=== PATIENT | female | born 1990 | race American Indian/Alaskan Native ===

== ENCOUNTER 2017-10-02 23:30 | Emergency (ER) | payer SELFPAY ==
[2017-10-02 23:45] VITALS: O2SAT 99
[2017-10-03] MEDS ORDERED: Sodium Chloride 0.9% 1,000 ML IV ONE (00:11)
--- NOTE | 2017-10-03 00:17 | C.PDOC ---
History Of Present Illness 27 year old female presents to the ED for evaluation of a cramping, right-sided abdominal discomfort which began today. Patient reports history of constipation. She denies fever, chills, nausea, vomiting. Time Seen by Provider: 10/03/17 00:02 Chief Complaint (Nursing): Abdominal Pain History Per: Patient History/Exam Limitations: no limitations Onset/Duration Of Symptoms: Hrs Current Symptoms Are (Timing): Still Present Location Of Pain/Discomfort: Other (right-sided ) Quality Of Discomfort: Cramping Associated Symptoms: denies: Fever, Chills, Nausea, Vomiting Additional History Per: Patient Abnormal Vaginal Bleeding: No Past Medical History Reviewed: Historical Data, Nursing Documentation, Vital Signs Vital Signs: Last Vital Signs Temp 98.3 F 10/03/17 02:17 Pulse 98 H 10/03/17 02:17 Resp 17 10/03/17 02:17 BP 125/68 10/03/17 02:17 Pulse Ox 99 10/03/17 04:37 - Medical History PMH: No Chronic Diseases Surgical History: No Surg Hx Family History: States: Unknown Family Hx - Social History Hx Tobacco Use: No Hx Alcohol Use: No Hx Substance Use: No - Immunization History Hx Tetanus Toxoid Vaccination: No Hx Influenza Vaccination: No Hx Pneumococcal Vaccination: No Review Of Systems Constitutional: Negative for: Fever, Chills Gastrointestinal: Positive for: Abdominal Pain (right-sided ). Negative for: Vomiting, Diarrhea Physical Exam - Physical Exam Appears: Non-toxic, No Acute Distress Skin: Normal Color, Warm, Dry Head: Atraumatic, Normacephalic Eye(s): bilateral: Normal Inspection Oral Mucosa: Moist Neck: Supple Chest: Symmetrical, No Deformity, No Tenderness Cardiovascular: Rhythm Regular, No Murmur Respiratory: Normal Breath Sounds, No Rales, No Rhonchi, No Wheezing Gastrointestinal/Abdominal: Soft, No Tenderness, No Guarding, No Rebound, Other (obese, dull to percussion on right side. negative Jorgensen's sign and McBurney's point tenderness ) Extremity: Normal ROM, Capillary Refill (less than 2 seconds) Neurological/Psych: Oriented x3, Normal Speech, Normal Cognition ED Course And Treatment - Laboratory Results Result Diagrams: 10/03/17 00:48 10/03/17 00:48 Lab Interpretation: Normal (ua neg.) Urine POC: Negative O2 Sat by Pulse Oximetry: 99 (on RA ) Pulse Ox Interpretation: Normal - Radiology CXR: Interpreted by Me CXR Interpretation: Yes: No Acute Disease - Other Rad abd x 2 X-Ray: Interpreted by Me (+FOS) Progress Note: Bloodwork, urinalysis, obstructive series abd ordered and reviewed. IV Fluids administered. Reevaluation Time: : Reassessment Condition: Improved Disposition Doctor Will See Patient In The: Office Counseled Patient/Family Regarding: Studies Performed, Diagnosis - Disposition Referrals: [facility] [Outside] [facility] [Outside] [facility] [Outside] Disposition: HOME/ ROUTINE Disposition Time: Condition: GOOD Additional Instructions: drink a bottle of Mag Citrate (laxative) now and re-evaluate your abdominal discomfort after using the bathroom 2-3 times diet and exercise changes power walk 45 mins/day x 5 days/week drink more water Follow-up in our outpatient Clinic as needed. Instructions: Constipation, Adult (DC) Forms: [facility] (Belarusian), Work Excuse - Clinical Impression Clinical Impression: Abdominal pain, Colicky right lower quadrant pain - Scribe Statement The provider has reviewed the documentation as recorded by the Scribe (Shauna Carvajal) Provider Attestation: All medical record entries made by the Scribe were at my direction and personally dictated by me. I have reviewed the chart and agree that the record accurately reflects my personal performance of the history, physical exam, medical decision making, and the department course for this patient. I have also personally directed, reviewed, and agree with the discharge instructions and disposition.
[2017-10-03 00:35] LABS: HCG,QUALITATIVE URINE NEGATIVE (NEGATIVE)
[2017-10-03 00:40] LABS: SQUAMOUS EPITHIAL 35 /hpf (0-5); URINE BACTERIA MOD (<OCC); URINE BILIRUBIN NEGATIVE (NEGATIVE); URINE BLOOD NEGATIVE (NEGATIVE); URINE CLARITY Hazy (Clear); URINE COLOR Yellow (YELLOW); URINE GLUCOSE (UA) NORMAL (Normal); URINE LEUKOCYTE ESTERASE TRACE Leu/uL (Negative); URINE PROTEIN NEGATIVE (NEGATIVE)
[2017-10-03 00:52] LABS: BASO % 0.8 % (0.0-2.0); EOS # 0.1 K/uL (0.0-0.7); EOS % 1.8 % (0.0-4.0); HEMOGLOBIN 13.6 g/dL (11.0-16.0); MEAN CELL VOLUME 86.7 fL (81.0-99.0); MEAN CORPUSCULAR HEMOGLOBIN 29.4 pg (27.0-31.0); MEAN CORPUSCULAR HGB CONC 33.9 g/dL (33.0-37.0); MEAN PLATELET VOLUME 9.1 fL (7.2-11.7); MONO # 0.4 K/uL (0.0-0.8); MONO % 6.7 % (0.0-10.0); NEUT # 2.3 K/uL (1.8-7.0); NEUT % 38.7 % (50.0-75.0); NRBC % 0.1 % (0.0-2.0); RBC 4.61 Mil/uL (3.80-5.20); RED CELL DISTRIBUTION WIDTH 13.5 % (11.5-14.5); WHITE BLOOD COUNT 5.8 K/uL (4.8-10.8)
[2017-10-03 01:04] LABS: ALB/GLOB RATIO 1.2 (1.0-2.1); ALBUMIN 3.9 g/dL (3.5-5.0); ALT/SGPT 8 U/L (9-52); AST/SGOT 21 U/L (14-36); BLOOD UREA NITROGEN 14 mg/dL (7-17); CALCIUM 8.9 mg/dl (8.6-10.4); GFR AFRICAN-AMERICAN > 60; GFR NON-AFRICAN AMERICAN > 60; LIPASE 86 U/L (23-300)
[2017-10-03 02:18] VITALS: BP 125/68; PULSE 98; RESP 17; TEMP 98.3
--- NOTE | 2017-10-03 14:13 | RAD ---
PROCEDURE: Radiographs of the chest and abdomen (obstructive series) HISTORY: abd pain COMPARISON: No prior. TECHNIQUE: AP radiograph of the chest, with upright and supine radiographs of the abdomen. FINDINGS: CHEST: Lungs: Clear. Cardiovascular: Normal size heart. No pulmonary vascular congestion. Pleura: No pleural fluid. No pneumothorax. Other findings: None. ABDOMEN AND PELVIS: Bowel: Mild constipation, otherwise unremarkable bowel gas pattern. No evidence of mechanical obstruction. Free air: None. Bones: Scoliosis in the thoracic and lumbar spine is noted Other findings: None. IMPRESSION: Mild constipation is noted. Otherwise unremarkable radiographs of chest and abdomen. No evidence of mechanical bowel obstruction. S shape scoliosis seen in the thoracic and lumbar spine.
== END 2017-10-03 02:18 | disposition home or self-care (01) ==
LOC: C.ER 23:30
DX: R10.84 Generalized abdominal pain (principal)
CPT/HCPCS: 74022; 80053; 81001; 83690; 84703; 85025; 96360; 99284; J7030

== ENCOUNTER 2018-01-09 15:05 | Emergency (ER) | payer OTHER ==
[2018-01-09 15:29] VITALS: BMI 34.3
[2018-01-09 15:32] VITALS: TEMP 98; O2SAT 98
[2018-01-09] MEDS ORDERED: Sodium Chloride 0.9% 1,000 ML IV STA (15:59)
--- NOTE | 2018-01-09 16:01 | C.PDOC ---
History Of Present Illness 27 year old female with history of pituitary tumor that was diagnosed in 2016 presents to ED for evaluation of headache for the past three days. Patient reports she lost her insurance and has not been treated for the last six months. Patient denies fever, chills, nausea, vomiting, numbness, weakness. Time Seen by Provider: 01/09/18 15:40 Chief Complaint (Nursing): Headache History Per: Patient History/Exam Limitations: no limitations Onset/Duration Of Symptoms: Days Past Medical History Reviewed: Historical Data, Nursing Documentation, Vital Signs Vital Signs: Last Vital Signs Temp 98 F 01/09/18 15:29 Pulse 78 01/09/18 18:21 Resp 16 01/09/18 18:21 BP 116/72 01/09/18 18:21 Pulse Ox 98 01/10/18 12:52 Surgical History: No Surg Hx Family History: States: No Known Family Hx - Social History Hx Tobacco Use: No Hx Alcohol Use: No Hx Substance Use: No - Immunization History Hx Tetanus Toxoid Vaccination: No Hx Influenza Vaccination: No Hx Pneumococcal Vaccination: No Review Of Systems Except As Marked, All Systems Reviewed And Found Negative. Constitutional: Negative for: Fever, Chills Gastrointestinal: Negative for: Nausea, Vomiting Neurological: Positive for: Headache. Negative for: Weakness, Numbness Physical Exam - Physical Exam Appears: Non-toxic, No Acute Distress Skin: Warm, Dry Head: Atraumatic, Normacephalic Eye(s): bilateral: Normal Inspection, EOMI Oral Mucosa: Moist Neck: Normal ROM, Supple Cardiovascular: Rhythm Regular Respiratory: Normal Breath Sounds, No Rales, No Rhonchi, No Wheezing Extremity: Normal ROM Neurological/Psych: Oriented x3, Normal Speech, Normal Cognition, No Other (no focal deficits) ED Course And Treatment - Laboratory Results Result Diagrams: 01/09/18 16:34 01/09/18 16:34 O2 Sat by Pulse Oximetry: 98 (RA) Pulse Ox Interpretation: Normal - Other Rad CT Head X-Ray: Interpreted by Me, Viewed By Me Interpretation: Date of service: 01/09/2018. PROCEDURE: CT HEAD WITHOUT CONTRAST. HISTORY: headache, h/o pituitary tumor. COMPARISON: None available. TECHNIQUE: Axial computed tomography images were obtained through the head/brain without intravenous contrast. Radiation dose: Total exam DLP = 1049.8 mGy-cm. This CT exam was performed using one or more of the following dose reduction techniques: Automated exposure control, adjustment of the mA and/ or kV according to patient size, and/or use of iterative reconstruction technique. FINDINGS: HEMORRHAGE: No intracranial hemorrhage. BRAIN: No mass effect or edema. No atrophy or chronic microvascular ischemic changes. VENTRICLES: Unremarkable. No hydrocephalus. CALVARIUM: Unremarkable. PARANASAL SINUSES: Unremarkable as visualized. No significant inflammatory changes. MASTOID AIR CELLS: Unremarkable as visualized. No inflammatory changes. OTHER FINDINGS: Prominent pituitary tissue extending to the right. IMPRESSION: No acute intracranial pathology. Progress Note: Cat scan, labs ordered and reviewed. Pt was given macrobid, reglan, and toradol. On reassesment, patient feels better, no longer c/o headache, tolerating PO well. Patient is stable for discharge. Case discussed with attending, Dr. Castro, who agrees upon plan and discharge. Patient is being discharged home with instructions to follow up with PMD in 1-2 days. Disposition - Disposition Referrals: [facility] [Outside] Disposition: HOME/ ROUTINE Disposition Time: 18:02 Condition: STABLE Additional Instructions: Follow up in Clinic within 1-2 days. Return to ED if feel worse. 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 - Scribe Statement The provider has reviewed the documentation as recorded by the Scribe Yonatan Winslowed All medical record entries made by the Scribe were at my direction and personally dictated by me. I have reviewed the chart and agree that the record accurately reflects my personal performance of the history, physical exam, medical decision making, and the department course for this patient. I have also personally directed, reviewed, and agree with the discharge instructions and disposition.
--- NOTE | 2018-01-09 16:34 | CT ---
Date of service: 01/09/2018 PROCEDURE: CT HEAD WITHOUT CONTRAST. HISTORY: headache, h/o pituitary tumor COMPARISON: None available. TECHNIQUE: Axial computed tomography images were obtained through the head/brain without intravenous contrast. Radiation dose: Total exam DLP = 1049.8 mGy-cm. This CT exam was performed using one or more of the following dose reduction techniques: Automated exposure control, adjustment of the mA and/or kV according to patient size, and/or use of iterative reconstruction technique. FINDINGS: HEMORRHAGE: No intracranial hemorrhage. BRAIN: No mass effect or edema. No atrophy or chronic microvascular ischemic changes. VENTRICLES: Unremarkable. No hydrocephalus. CALVARIUM: Unremarkable. PARANASAL SINUSES: Unremarkable as visualized. No significant inflammatory changes. MASTOID AIR CELLS: Unremarkable as visualized. No inflammatory changes. OTHER FINDINGS: Prominent pituitary tissue extending to the right. IMPRESSION: No acute intracranial pathology.
[2018-01-09 16:38] LABS: BASO % 0.6 % (0.0-2.0); EOS # 0.1 K/uL (0.0-0.7); EOS % 2.4 % (0.0-4.0); HEMOGLOBIN 13.4 g/dL (11.0-16.0); LYMPH # 2.8 K/uL (1.0-4.3); MEAN CELL VOLUME 85.5 fL (81.0-99.0); MEAN PLATELET VOLUME 8.1 fL (7.2-11.7); MONO # 0.5 K/uL (0.0-0.8); MONO % 8.9 % (0.0-10.0); NEUT # 2.1 K/uL (1.8-7.0); NEUT % 38.1 % (50.0-75.0); RBC 4.61 Mil/uL (3.80-5.20); RED CELL DISTRIBUTION WIDTH 13.4 % (11.5-14.5); WHITE BLOOD COUNT 5.6 K/uL (4.8-10.8)
[2018-01-09 16:44] LABS: HCG,QUALITATIVE URINE NEGATIVE (NEGATIVE)
[2018-01-09 16:47] LABS: SQUAMOUS EPITHIAL 17 /hpf (0-5); URINE BACTERIA RARE (<OCC); URINE BILIRUBIN NEGATIVE (NEGATIVE); URINE BLOOD NEGATIVE (NEGATIVE); URINE CLARITY Hazy (Clear); URINE COLOR Yellow (YELLOW); URINE GLUCOSE (UA) NORMAL (Normal); URINE LEUKOCYTE ESTERASE 1+ Leu/uL (Negative); URINE PROTEIN NEGATIVE (NEGATIVE)
[2018-01-09 16:50] LABS: BLOOD UREA NITROGEN 11 mg/dL (7-17); CALCIUM 9.5 mg/dl (8.6-10.4); GFR NON-AFRICAN AMERICAN > 60
[2018-01-09 16:54] LABS: ALB/GLOB RATIO 1.1 (1.0-2.1); ALBUMIN 4.6 g/dL (3.5-5.0); ALT/SGPT 13 U/L (9-52); AST/SGOT 45 U/L (14-36); INR 1.1; PROTHROMBIN TIME 12.4 SECONDS (9.7-12.2)
[2018-01-09 17:07] LABS: PROLACTIN 235.7 ng/mL (3.0-18.9)
[2018-01-09 18:21] VITALS: BP 116/72; PULSE 78; RESP 16
== END 2018-01-09 18:21 | disposition home or self-care (01) ==
LOC: C.ER 15:05
DX: R51 Headache (principal)
CPT/HCPCS: 70450; 80053; 81001; 83735; 84146; 84703; 85025; 85610; 85730; 96361; 96374; 96375; 99284; J1885; J2765; J7030

== ENCOUNTER 2018-01-29 18:45 | Emergency (ER) | payer OTHER ==
[2018-01-29 18:46] VITALS: BMI 34.3
--- NOTE | 2018-01-29 19:47 | C.PDOC ---
History Of Present Illness 27 y/o female presents to the ED complaining of a cough productive of yellow phlegm, subjective fever, and congestion. Today she also developed shortness of breath. Patient reports PMHx of childhood asthma but no treatment or hospitalizations recently. Sates she tried using [id number] mucinex cough syrup with minimal improvement. Otherwise patient denies any headaches, chest tightness, dizziness, lightheadedness, nausea, vomiting, or diarrhea. Time Seen by Provider: 01/29/18 19:34 Chief Complaint (Nursing): Shortness Of Breath History Per: Patient History/Exam Limitations: no limitations Onset/Duration Of Symptoms: Days Current Symptoms Are (Timing): Still Present Associated Symptoms: Fever, Cough, Sputum, Nasal Congestion Past Medical History Reviewed: Historical Data, Nursing Documentation, Vital Signs Vital Signs: Last Vital Signs Temp 99.0 F 01/29/18 18:50 Pulse 95 H 01/29/18 18:50 Resp 20 01/29/18 18:50 BP 104/61 01/29/18 18:50 Pulse Ox 96 01/29/18 18:50 Surgical History: No Surg Hx Family History: States: Unknown Family Hx - Social History Hx Tobacco Use: No Hx Alcohol Use: No Hx Substance Use: No - Immunization History Hx Tetanus Toxoid Vaccination: No Hx Influenza Vaccination: No Hx Pneumococcal Vaccination: No Review Of Systems Except As Marked, All Systems Reviewed And Found Negative. Constitutional: Positive for: Fever (subjective) Eyes: Negative for: Vision Change ENT: Positive for: Nose Congestion. Negative for: Throat Pain Cardiovascular: Negative for: Chest Pain, Palpitations, Light Headedness Respiratory: Positive for: Cough, Shortness of Breath, Sputum. Negative for: Hemoptysis Gastrointestinal: Negative for: Nausea, Vomiting, Diarrhea Neurological: Negative for: Headache, Dizziness Physical Exam - Physical Exam Appears: Non-toxic, No Acute Distress Skin: Normal Color, Warm, Dry Head: Atraumatic, Normacephalic Eye(s): bilateral: Normal Inspection Neck: Normal ROM Chest: Symmetrical Cardiovascular: Rhythm Regular, No Murmur Respiratory: Decreased Breath Sounds (minimally diminished breath sounds), No Accessory Muscle Use, Rhonchi (expiratory), Wheezing (expiratory), Other (No retractions) Extremity: Bilateral: Atraumatic, Normal ROM Neurological/Psych: Oriented x3, Normal Speech ED Course And Treatment O2 Sat by Pulse Oximetry: 96 (RA) Pulse Ox Interpretation: Normal Progress Note: Patient treated with Albuterol nebs x2 and PO prednisone. On reassessment patient reports feeling better, and is stable for discharge home. Lung sounds are improved. Patient provided with prescriptions for ventolin inhaler, tessalon perles, and prednisone. Patient feels comfortable going home and will be discharged. Patient given follow up instructions. Instructed to return to ER if symptoms worsen or new symptoms arise. Reassessment Condition: Improved Disposition Counseled Patient/Family Regarding: Diagnosis, Need For Followup, Rx Given - Disposition Disposition: HOME/ ROUTINE Disposition Time: 19:46 Condition: STABLE Additional Instructions: Please follow up with PMD Take medication as directed Return to ER if worse Prescriptions: Albuterol HFA [Ventolin HFA 90 mcg/actuation (8 g)] 2 puff IH [id number] #1 inhaler Benzonatate [Tessalon Perles] 100 mg PO TID #20 sgl predniSONE [Prednisone] 40 mg PO DAILY #8 tab Instructions: Upper Respiratory Infection (ED) Forms: Pager (Maldivian), Work Excuse - POA Present On Arrival: None - Clinical Impression Clinical Impression: Upper respiratory infection - 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 - Scribe Statement The provider has reviewed the documentation as recorded by the Scribe (Therese Washington) All medical record entries made by the Scribe were at my direction and personally dictated by me. I have reviewed the chart and agree that the record accurately reflects my personal performance of the history, physical exam, medical decision making, and the department course for this patient. I have also personally directed, reviewed, and agree with the discharge instructions and disposition.
[2018-01-29] MEDS ORDERED: Albuterol 0.083% Inhal Sol (2.5 mg/3 mL) UD INH STA (19:52)
[2018-01-29] MEDS ORDERED: Albuterol 0.083% Inhal Sol (2.5 mg/3 mL) UD IH STA (19:54)
[2018-01-29] MEDS ORDERED: Albuterol 0.083% Inhal Sol (2.5 mg/3 mL) UD ONE (19:56)
[2018-01-29] MEDS ORDERED: Albuterol-Ipratrop 3 mg / 0.5 (3 ml) UD IH SCH (20:00)
[2018-01-29 20:51] VITALS: BP 138/86; PULSE 96; RESP 20; TEMP 98
[2018-01-29 21:15] VITALS: O2SAT 96
== END 2018-01-29 20:50 | disposition home or self-care (01) ==
LOC: C.ER 18:45
DX: J06.9 Acute upper respiratory infection, unspecified (principal); Z87.891 Personal history of nicotine dependence

== ENCOUNTER 2018-02-13 18:40 | Emergency (ER) | payer SELFPAY ==
[2018-02-13 18:40] VITALS: BMI 34.3
[2018-02-13 18:45] VITALS: BP 118/77; PULSE 97; TEMP 98.8; O2SAT 97
[2018-02-13] MEDS ORDERED: Amoxicillin-Clav 875-125 mg Tab PO STA (19:05)
[2018-02-13] MEDS ORDERED: Albuterol 0.083% Inhal Sol (2.5 mg/3 mL) UD IH STA (19:05)
--- NOTE | 2018-02-13 19:14 | C.PDOC ---
History Of Present Illness 27 year old female, smoker, patient comes in for evaluation of cold sx for x3 days associated with nasal congestion, running nose, sore throat and non- productive cough. Patient woke up this morning with a worsening sore throat. Otherwise, pt denies fever, chills, headache, dizziness, drooling, dyspnea, SOB, wheezing, abd. pain, N/v/D, UTI sx, denies recent travel or known sick contact. Ambulate to Ed for evaluation, occasional dry cough noted. Time Seen by Provider: 02/13/18 18:41 Chief Complaint (Nursing): ENT Problem History Per: Patient History/Exam Limitations: no limitations Onset/Duration Of Symptoms: Days (x3) Current Symptoms Are (Timing): Still Present Location Of Pain: Throat Associated Symptoms: Sore Throat, Cough, Nasal Congestion, Other (running nose) Past Medical History Reviewed: Historical Data, Nursing Documentation, Vital Signs Vital Signs: Last Vital Signs Temp 98.8 F 02/13/18 18:44 Pulse 97 H 02/13/18 18:44 Resp BP 118/77 02/13/18 18:44 Pulse Ox 97 02/13/18 18:44 Family History: States: Unknown Family Hx - Social History Hx Tobacco Use: No Hx Alcohol Use: No Hx Substance Use: No - Immunization History Hx Tetanus Toxoid Vaccination: No Hx Influenza Vaccination: No Hx Pneumococcal Vaccination: No Review Of Systems Except As Marked, All Systems Reviewed And Found Negative. Constitutional: Negative for: Fever, Chills ENT: Positive for: Nose Discharge, Nose Congestion, Throat Pain. Negative for: Other (Drooling ) Respiratory: Positive for: Cough (non-productive). Negative for: Shortness of Breath, Wheezing Physical Exam - Physical Exam Appears: Well, Non-toxic, No Acute Distress Skin: Normal Color, Warm, Dry, No Rash Head: Normacephalic Eye(s): bilateral: PERRL Ear(s): Bilateral: Normal Nose: No Flaring, Discharge (B/L congestion with scant clear rhinorrhea) Oral Mucosa: Moist, No Drooling Tongue: Normal Appearing Lips: Normal Appearing Throat: Erythema (b/l pharyngeal erythema ), No Drooling, Other (uvul amidline, no edema.) Neck: Trachea Midline, Supple Chest: Symmetrical, No Deformity Cardiovascular: Rhythm Regular, No Murmur, No JVD Respiratory: No Accessory Muscle Use, No Rales, No Rhonchi, No Stridor, Wheezing (scattered right expiratory wheeze) Gastrointestinal/Abdominal: Soft, No Tenderness, No Distention, No Guarding Back: No CVA Tenderness Extremity: Normal ROM, No Pedal Edema, No Swelling Neurological/Psych: Oriented x3, Normal Speech ED Course And Treatment O2 Sat by Pulse Oximetry: 97 (RA) Pulse Ox Interpretation: Normal Progress Note: On re-eval, pt is afebrile, hemodynamicaly stable. NOn-toxic. Tolerate Po well in ED. PusleOx 97% RA. ENT: c/w mild pharyngitis. neck: Supple, (-) LDN. Lungs: CTA B/L, BS equal B/L. ABd: benign. neurologicaly intact. Pt has clinical findings c/w asthma bronchitis. Pt advised. ref. to f/u with PMD in 2 -3 days for re-eavl. return if any new changes. Disposition Counseled Patient/Family Regarding: Diagnosis, Need For Followup, Rx Given - Disposition Referrals: Sendy Boo MD [Medical Doctor] - Disposition: HOME/ ROUTINE Disposition Time: 19:21 Condition: STABLE Additional Instructions: take medication as prescribed Encourage fluids Follow up with PMD in 2-3 days for re-evaluation. return to ED if any worsening or new changes. Prescriptions: Albuterol HFA [Ventolin HFA 90 mcg/actuation (8 g)] 1 puff IH Q6 #1 inhaler Amoxicillin/Clavulanate [Augmentin 875 MG-125 MG] 1 tab PO BID #14 tab Benzonatate [Tessalon Perle] 100 mg PO TID #14 capsule Prednisone [Deltasone] 40 mg PO DAILY #6 tablet Instructions: Asthma in Adults, Acute Bronchitis Forms: [facility] (Serbian) - Clinical Impression Clinical Impression: Bronchitis - PA / EQUIPMENT INSTALLATION PROFESSIONAL / Resident Statement / has reviewed & agrees with the documentation as recorded. - Scribe Statement The provider has reviewed the documentation as recorded by the Zita Vick Do All medical record entries made by the Scribe were at my direction and personally dictated by me. I have reviewed the chart and agree that the record accurately reflects my personal performance of the history, physical exam, medical decision making, and the department course for this patient. I have also personally directed, reviewed, and agree with the discharge instructions and disposition.
[2018-02-13 19:47] VITALS: RESP 20
== END 2018-02-13 19:46 | disposition home or self-care (01) ==
LOC: C.ER 18:40
DX: J40 Bronchitis, not specified as acute or chronic (principal); F17.200 Nicotine dependence, unspecified, uncomplicated